=== PATIENT | male | born 1990 | race Caucasian/White ===

== ENCOUNTER 2018-07-11 02:45 | Emergency (ER) | payer OTHER ==
[~2018-07-11] VITALS: Ht 170.2 cm; Wt 86.2 kg
[~2018-07-11 02:45] MED LIST: ACET-685 PO; CIPR500T86 PO; CITA10TA4 PO; DICY10CA52 PO; TRAM50TA PO
[2018-07-11 02:48] VITALS: BP 137/79
[2018-07-11] MEDS ORDERED: TRIPLE ANTIBIOTIC OINTMENT TP ONE (03:09)
--- NOTE | 2018-07-11 03:18 | NUR ---
WOUND CARE RIGHT HAND WOUND CLEANSED WITH BETADINE. ANTIBIOTIC OINTMENT AND BANDAID APPLIED. PATIENT TOLERATED WELL.
--- NOTE | 2018-07-11 03:29 | ER.PDOC ---
General Chief Complaint: Wound Recheck/Suture Removal Stated Complaint: WOUND CARE Time seen by MD: 03:00 Source: patient Exam Limitations: no limitations History of Present Illness Occurred: this evening Context: pt had foreign body removal and trigger finger release. Where: home Severity: mild Exacerbated By: nothing Relieved By: nothing Allergies: Coded Allergies: amoxicillin (Verified Allergy, Unknown, Hives, 04/03/17) meperidine (Verified Allergy, Unknown, RASH, 10/22/17) ondansetron (Verified Allergy, Unknown, RASH, 10/22/17) Home Meds Reported Medications Dicyclomine Hcl (BENTYL) 10 Mg Capsule, 10 MG PO TID, CAPSULE 01/25/17 Tramadol Hcl (TRAMADOL HCL) 50 Mg Tablet, 50 MG PO Q6 PRN for PAIN, TABLET 01/25/17 Past Medical History Medical History: no pertinent history Surgical History: appendectomy, back, cholecystectomy, other (FB removal and trigger finger release) Family History Significant Family History: no pertinent family hx Social History Smoking: non-smoker, chew Alcohol Use: occassionally Drug Use: none Physical Exam General Appearance: alert Upper Extremity: tenderness Skin: color nml, warm/dry Vascular: no vascular compromise Neuro/Psych: sensation nml Central Exam: oriented X3 EENT: eyes nml inspection Neck/Back: nml inspection Respiratory: no resp distress CVS: reg rate & rhythm Abdomen: non-tender (superficial open wound in right palm, no drainage) ED LACERATION WOUND REPAIR Wound Length (cm): 3 Wound cleaned: betadine (cleaned with betadine and dressed) Wound's Depth, Shape: superficial Wound Explored: clean Tendon Intact: Yes Progress Progress reassurance given Departure Time of Disposition: 03:30 Disposition: 01 HOME, SELF-CARE Impression: Primary Impression: Open wound Additional Impression: Dehiscence of closure of skin Qualified Codes: T81.31XA - Disruption of external operation (surgical) wound , not elsewhere classified, initial encounter Condition: Stable Referrals: LIZZETTE KUO NP (PCP) PRIMARY CARE PROVIDER Duration or Time Spent with Pa: 1hr Copies To 1: DORIS BECKER MD Critical Care Note Total Time (mins): 15 Comments superficial open surgical wound DORIS BECKER MD Jul 11, 2018 03:29
[2018-07-11 03:43] VITALS: BP 137/79
== END 2018-07-11 03:38 | disposition home or self-care (01) ==
LOC: ER 02:45
DX: T81.31XA Disruption of external operation (surgical) wound, not elsewhere classified, initial encounter (principal); Y83.8 Other surgical procedures as the cause of abnormal reaction of the patient, or of later complication, without mention of misadventure at the time of the procedure; Y92.89 Other specified places as the place of occurrence of the external cause
CPT/HCPCS: 99283; A4649